=== PATIENT | female | born 1995 | race Caucasian/White ===

== ENCOUNTER 2018-03-01 20:57 | Emergency (ER) | payer OTHER, SELFPAY ==
[2018-03-01 21:00] VITALS: BP 129/73; PULSE 90; RESP 17; TEMP 37.1; O2SAT 95; BMI 31.4
[2018-03-01 21:42] LABS: Bacteria 0 SEEN /hpf (None Seen); Mucous, Urine 0 SEEN /hpf (<or=2+); Red Blood Cells-Urine 0 SEEN /hpf (0-5); Squamous Epithelial Cells - UA 0 SEEN /hpf (5-10); White Blood Cells 0 SEEN /hpf (0-5)
--- NOTE | 2018-03-01 21:42 | CT_ITS ---
STUDY: CT ABDOMEN AND PELVIS WITHOUT CONTRAST REASON FOR EXAM: Female, 22 years old. Hematuria. RADIATION DOSAGE (If Supplied By Facility): CTDIvol = ( 11.79 ) mGy, DLP = ( 595.03 ) mGycm TECHNIQUE: Transaxial images were obtained from the dome of the diaphragm to the symphysis pubis without oral contrast, and without intravenous contrast. Sagittal and coronal images were reconstructed. Individualized dose optimization techniques were used for this CT. COMPARISON: None. FINDINGS: The visualized lung bases are unremarkable. The visualized portions of the heart are within normal limits. Normal liver. The gallbladder is contracted. Normal spleen. Normal pancreas. Normal bilateral adrenal glands. Right kidney has a 2 mm nonobstructing lower pole stone, and is otherwise normal. Left kidney has a 2 mm nonobstructing lower pole stone. There appears to be mild left hydronephrosis. There is a probable 2 mm mid left ureteral stone as seen on coronal image 52 and axial image 106. Evaluation of the GI tract is limited by the absence of oral contrast. Normal visualized stomach. Normal small intestine. Normal colon. The appendix is visualized and appears normal. Normal abdominal aorta. Normal inferior vena cava. Normal retroperitoneum. Normal urinary bladder. Normal visualized uterus. There is an IUD in typical location. Normal abdominal wall. Normal osseous structures. CT/Abdomen/Pelvis without Cont IMPRESSION: Probable 2 mm mid left ureteral stone causing mild hydronephrosis. Additional small nonobstructing bilateral renal stones. Electronically Signed: Amol Maher MD at 23:14 EST , Service support ,
[2018-03-01 21:45] LABS: Glucose, Dipstick Normal (Normal); Ketone-Dipstick Negative (Negative); Leukocyte Esterase-Dipstick Negative /ul (Negative); Nitrite-Dipstick Negative (Negative); Occult Blood-Urine 250 /ul (Negative); Protein-Dipstick Negative (Negative); Specific Gravity, Urine 1.005 (1.002-1.030); Urine Bilirubin Dipstick Negative (Negative); Urine Urobilinogen Normal (Normal); Urine pH 6.5 (5.0 - 8.0)
[2018-03-01 21:47] LABS: Internal QC Validated? YES +Cl - CLEAR BKGD
[2018-03-01 21:48] LABS: Color, Urine Yellow (Yellow); Pregnancy, Urine Negative Negative; Urine Clarity Clear (Clear)
--- NOTE | 2018-03-01 23:45 | ED.VISSUMM ---
- ER Visit Summary Date of Service: 03/01/18 Chief Complaint: Blood in urine History of Present Illness: The patient is a 22 F presenting with blood in urine. She states this has been ongoing for the past 2 days. She has had some mild left lower quadrant tenderness. She states this is currently improved. Denies nausea or vomiting. Denies dysuria. She states she does have frequency but she has been drinking a lot of water. She has mild back pain. She denies fever. Denies possibility of . Denies other complaints. Physical Examination: Vitals are stable. Patient is afebrile. Alert no acute distress. HEENT exam is unremarkable. Neck is supple. Lungs are clear and equal bilaterally. Heart is regular rate and rhythm. Abdomen is soft nontender nondistended. No guarding or rebound Back mild left CVA tenderness Extremities are unremarkable. Skin is warm and dry. Remainder of exam is unremarkable. Emergency Department Course and Treatment: Patient is resting comfortably. Urinalysis shows positive blood, 0 white cells. HCG negative. CT abdomen pelvis shows probable 2 mm mid left ureteral stone causing mild hydronephrosis. Additional small nonobstructing bilateral renal stones. Patient is advised of these findings. She is advised to take Motrin for pain. She declined additional pain medication. She is advised to follow-up with urology. Advised return ED if worsening complaints. Disposition: Discharge home Impression: Urolithiasis This note was generated with [employer] dictation software. It may contain incorrect words, spelling, and punctuation that were not noted in review of the chart prior to signing ED Disposition - Plan for ED Patient: Chief Complaint: Complaint Referrals: [facility] Doctor,Out of [Primary Care Provider] -
--- NOTE | 2018-03-01 23:48 | ED.DCSUM_ITS ---
- ER Visit Summary Date of Service: 03/01/18 Chief Complaint: Blood in urine History of Present Illness: The patient is a 22 F presenting with blood in urine. She states this has been ongoing for the past 2 days. She has had some mild left lower quadrant tenderness. She states this is currently improved. Denies nausea or vomiting. Denies dysuria. She states she does have frequency but she has been drinking a lot of water. She has mild back pain. She denies fever. Denies possibility of . Denies other complaints. Physical Examination: Vitals are stable. Patient is afebrile. Alert no acute distress. HEENT exam is unremarkable. Neck is supple. Lungs are clear and equal bilaterally. Heart is regular rate and rhythm. Abdomen is soft nontender nondistended. No guarding or rebound Back mild left CVA tenderness Extremities are unremarkable. Skin is warm and dry. Remainder of exam is unremarkable. Emergency Department Course and Treatment: Patient is resting comfortably. Urinalysis shows positive blood, 0 white cells. HCG negative. CT abdomen pelvis shows probable 2 mm mid left ureteral stone causing mild hydronephrosis. Additional small nonobstructing bilateral renal stones. Patient is advised of these findings. She is advised to take Motrin for pain. She declined additional pain medication. She is advised to follow-up with urology. Advised return ED if worsening complaints. Disposition: Discharge home Impression: Urolithiasis This note was generated with [employer] dictation software. It may contain incorrect words, spelling, and punctuation that were not noted in review of the chart prior to signing ED Disposition - Plan for ED Patient: Chief Complaint: Complaint Referrals: [facility] Doctor,Out of [Primary Care Provider] -
--- NOTE | 2018-03-01 23:48 | ED.DEP ---
ED Disposition - Plan for ED Patient: Chief Complaint: Complaint Instructions: ED Stone Renal W Colic Referrals: Liz Wong MD [STAFF PHYSICIAN] -
[2018-03-02 00:20] VITALS: BP 128/74; PULSE 90; RESP 14; O2SAT 98
== END 2018-03-02 00:21 | disposition home or self-care (01) ==
LOC: ED 21:57
PROVIDERS: Emergency Provider Emergency Medicine
DX: N13.2 Hydronephrosis with renal and ureteral calculous obstruction (principal)
CPT/HCPCS: 74176; 81001; 81025; 99283

== ENCOUNTER 2018-08-18 10:05 | Emergency (ER) | payer OTHER, SELFPAY ==
[2018-08-18 10:06] VITALS: BP 141/61; PULSE 79; RESP 16; TEMP 36.8; O2SAT 98; BMI 31.7
--- NOTE | 2018-08-18 10:19 | ED.DCSUM_ITS ---
- ER Visit Summary Date of Service: 08/18/18 Chief Complaint: Right flank pain History of Present Illness: The patient is a 23 F who woke this morning with right flank pain. Pain does wrap to the lateral abdominal wall. She has noted some mild hematuria but no dysuria. She was seen here in February 2018 for a kidney stone on the left. At that time there is a 2 mm stone noted in her right kidney. Patient did take Tylenol this morning. She went to the wellness center at the [facility] where her urine tested positive for blood but no infection. She states she was given meclizine but vomited it back up. Physical Examination: Blood pressure is 141/61, otherwise vitals normal. Patient sitting upright in bed no acute distress. Heart is regular rate and rhythm. Lung sounds are clear. Abdomen is soft and nontender. Back examination does reveal right CVA tenderness. No skin rash or lesions. Test Results: CBC and chemistry studies are unremarkable. test negative. Urinalysis was performed at the [facility] and did not show sign of infection. Emergency Department Course and Treatment: Patient was initially given Toradol, morphine, Zofran, and IV fluids. After 40 minutes her pain returned. She was then given a small dose of Dilaudid and CT flank was obtained. CT reveals a 1 to 2 mm stone at the right UVJ. There is mild hydronephrosis and stranding noted. On repeat evaluation patient is resting comfortably. She will be treated with Hubert, Toradol, Zofran. She will be referred to Dr. Walsh if her symptoms are not improving. Treatment Plan: [] Disposition: Discharge Impression: Right ureterolithiasis This note was generated with [employer] dictation software. It may contain incorrect words, spelling, and punctuation that were not noted in review of the chart prior to signing ED Disposition - Plan for ED Patient: Disposition: Home or Assisted Living Instructions: ED Stone Renal W Colic Prescriptions: Hydrocodone Bitart/Apap 5-325 [Hubert 5MG-325MG] 1 tablet PO Q6H PRN PRN 3 Days #10 tablet PRN Reason: Pain Ondansetron [Zofran Odt] 4 mg PO Q8H PRN PRN #10 tablet PRN Reason: Nausea Ketorolac [Toradol] 10 mg PO Q6H PRN #14 tablet PRN Reason: Pain Referrals: Jose Walsh MD [STAFF PHYSICIAN] - As Needed
[2018-08-18] MEDS: Ondansetron 4 MG/2 ML Vial IV (10:23)
[2018-08-18] MEDS: Morphine 4 MG/ML Syringe IV (10:23)
[2018-08-18] MEDS: Ketorolac 30 MG/ML Syringe IV (10:23)
[2018-08-18] MEDS: 0.9% Normal Saline 1,000 ML 250 ML IV (10:23)
[2018-08-18 10:41] LABS: Absolute Lymphocyte Count 1.61 X10^3/ul (0.83-4.51); Absolute Neutrophil Count 5.7 X10^3/uL (2.0-7.7); Basophil# 0.02 X10^3/uL; Basophil% 0.2 % (0-1); Eosinophil# 0.11 X10^3/uL; Eosinophils% 1.3 % (0-5); Hematocrit 39.3 % (37-47); Hemoglobin 13.5 g/dl (12.0-15.0); Lymphocyte # 1.61 X10^3/ul (4.0); Lymphocyte % 19.5 % (19-41); Mean Corp Hgb Conc 34.4 g/gl (32-36); Mean Corpuscular Volume 87.3 fL (81-99); Mean Platelet Vol. 9.4 fl (6.2-12.0); Monocyte# 0.78 X10^3/uL; Monocyte% 9.4 % (0-10); Neutrophil # 5.72 X10^3/uL (2.7-7.7); Neutrophil % 69.4 % (47-70); Platelet Count 314 K/mm3 (150-450); RBC Distribution Width CV 12.5 % (11.6-14.6); RBC Distribution Width SD 40.3 fl (35.1-43.9); White Blood Count 8.3 K/mm3 (4.4-11.0)
[2018-08-18 10:44] LABS: POSITIVE COUNT NO; POSITIVE DIFFERENTIAL NO; POSITIVE MORPHOLOGY NO
[2018-08-18 10:51] LABS: Anion Gap 5 (5-15); BUN 13 mg/dL (7-18); BUN/Creat Ratio 14.7 RATIO (10-20); Calcium,Total 8.9 mg/dL (8.5-10.1); Chloride 104 mmol/L (98-107); Creatinine, Serum 0.88 mg/dL (0.55-1.02); EST Glomerular Filtration Rate 85 mL/min (>60); Est Glom Filt Rate - Afr Amer 103 mL/min (>60); Estimated Creatinine Clearance 87.32 ml/min; Glucose 95 mg/dL (74-106); Potassium 3.6 mmol/L (3.5-5.1); Sodium Level 137 mmol/L (136-145)
[2018-08-18 11:01] LABS: Internal QC Validated? YES +Cl - CLEAR BKGD; Pregnancy, Serum, hCG Quali. NEGATIVE Negative
--- NOTE | 2018-08-18 11:12 | CT_ITS ---
STUDY: CT ABDOMEN AND PELVIS WITHOUT CONTRAST REASON FOR EXAM: Female, 23 years old. Right flank pain. History of kidney stones and IUD. RADIATION DOSAGE (If Supplied By Facility): CTDIvol = ( 8.85 ) mGy, DLP = ( 439.94 ) mGycm TECHNIQUE: Transaxial images were obtained from the dome of the diaphragm to the symphysis pubis without oral contrast, and without intravenous contrast. Sagittal and coronal images were reconstructed. Individualized dose optimization techniques were used for this CT. COMPARISON: CT abdomen pelvis without contrast March 01, 2018. FINDINGS: The visualized lung bases are unremarkable. The visualized portions of the heart are within normal limits. Normal liver. Normal gallbladder and extrahepatic biliary system. Normal spleen. Normal pancreas. Normal bilateral adrenal glands. 1-2 mm stone seen previously in the lower pole of the right kidney is no longer apparent. There is suggestion of minor right hydronephrosis down to a possible 1-2 mm stone at the right ureterovesical junction (series 2 image 148). Subtle perinephric stranding also suggested about the right renal hilum today. 1-2 mm nonobstructing stone in the lower pole of left kidney is unchanged. No left hydronephrosis. Normal visualized stomach. Normal small intestine. Normal colon. There is non-visualization of the appendix. Normal abdominal aorta. Normal inferior vena cava. Normal retroperitoneum. Normal urinary bladder. Normal size anteverted uterus. A T-shaped intrauterine device is present in the endometrial cavity. Normal abdominal wall. Normal osseous structures. CT/Abdomen/Pelvis without Cont IMPRESSION: 1. 1-2 mm stone seen previously in the lower pole of the right kidney is now at the right ureterovesical junction. There is minor right hydronephrosis as well as subtle congestive perinephric stranding about the right renal hilum. 2. 1-2 mm nonobstructing stone in the lower pole of the left kidney is unchanged. No left hydronephrosis. 3. T-shaped IUD incidentally noted in the endometrial cavity of the normal size, anteverted uterus. Electronically Signed: Prince Dey MD at 12:16 EDT , Service support ,
[2018-08-18] MEDS: HYDROmorphone 0.5 MG/0.5 ML SYRINGE IV (11:30)
[2018-08-18 12:55] VITALS: BP 124/69; PULSE 77; RESP 16; O2SAT 99
== END 2018-08-18 12:58 | disposition home or self-care (01) ==
PROVIDERS: Emergency Provider Emergency Medicine; Family Provider Pediatrics; PCP Pediatrics
DX: N13.2 Hydronephrosis with renal and ureteral calculous obstruction (principal); Z87.442 Personal history of urinary calculi
CPT/HCPCS: 36415; 74176; 80048; 84703; 85025; 96361; 96374; 96375; 99283; J2405